=== PATIENT | male | born 1955 | race Caucasian/White ===

== ENCOUNTER → 2016-09-02 | Outpatient (CLI) | payer MEDICAID ==
[~2016-09-02] MED LIST: NS 100 ML IV 100 ML IV ONE
[2016-09-02 09:56] LABS: CREATININE 0.94 mg/dL (0.70-1.30)
--- NOTE | 2016-09-02 12:31 | US ---
HISTORY: Testicular pain Study: Scrotal Ultrasound Comparison: None Technique: Multiple horowitz scale and Doppler images of the right and left testicles were obtained Findings: Right: The right testis demonstrates normal echotexture. No intra parenchymal mass or infiltrative p rocess can be identified. Normal color flow Doppler is observed. The right testicle measures 4.3 x 2 x 2.9 cm. Left: The left testis demonstrates normal echotexture. No intra parenchymal mass or infiltrative pro cess can be identified. Normal color flow Doppler is observed. The left testicle measures 3.8 x 2.5 x 2.6 cm. IMPRESSION: 1. Normal scrotal ultrasound. Reported By:
--- NOTE | 2016-09-02 16:49 | CT ---
HISTORY: Bilateral leg pain, peripheral vascular disease Study: CT angiography with bilateral lower extremity runoff with and without contrast Comparison: None Technique: Multiple axial images of the abdomen and pelvis were obtained from the mesenteric vasculature to the plantar surface of the feet both prior to and after the administration of IV contrast. 3D reconstr uctions were performed utilizing radial maximum intensity projection imaging.Dose reduction techniqu es including Automated Exposure Control (AEC) and adjustment of mA and kV were utilized. Findings: The visualized portions of the solid organs are unremarkable in their CT appearance. There is a lar ge wide-mouth ventral hernia in the mid to upper abdomen that contains multiple small bowel loops as well as long segment of the transverse colon. There is no evidence of bowel obstruction. The appen fredi is normal. No gross free intraperitoneal air or free fluid identified. Normal urinary bladder. N o significant lymphadenopathy identified. The bony structures are grossly intact. Infrarenal abdominal aorta: There is fusiform aneurysmal dilation of the infrarenal abdominal aorta measuring up to 3.7 cm in AP diameter and approximately 8 cm in length extending into the bifurcatio n. There is extensive ulcerated mural plaque seen within the aneurysm. No dissection. Common iliac arteries: There is aneurysmal dilation of the proximal right common iliac artery measur ing up to 2.7 cm, also containing significant ulcerated mural plaque. Normal caliber of the left com mon iliac artery demonstrating moderate stenosis due to mixed calcified and noncalcified plaque. External iliac arteries: There is multifocal atherosclerotic disease within the bilateral external i liac arteries. Common femoral arteries: There is a saccular aneurysm of the right common femoral artery measuring 2 cm with significant mural plaque burden. There is a saccular aneurysm of the left common femoral ar maribell also with significant mural plaque measuring 1.8 cm. Superficial femoral arteries: There is multifocal plaque in the right SFA with mild stenosis in the proximal SFA due to the eccentric mural plaque. There is suspected moderate stenosis of the proximal left SFA due to a focal nodular calcified plaque along the medial wall. There is scattered atherosc lerotic plaque seen along the course of the left SFA. Popliteal arteries: There is a 0.9 cm aneurysm of the right popliteal artery with moderate mural bill que no significant stenosis. There is multifocal atherosclerotic disease in the left popliteal arter y without aneurysm. Tibial vasculature: There is patent three-vessel runoff to the right ankle. There is 2 vessel runoff to the left ankle with occlusion of the left anterior tibial artery at approximately the mid calf. IMPRESSION: 1. Fusiform aneurysm of the abdominal aorta measuring approximately 3.7 cm AP diameter and 8 cm in l ength extending into the bifurcation. There is significant ulcerated mural plaque burden within the aneurysm. 2. 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 3. 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 4. 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 5. Moderate stenosis of the left common iliac artery and proximal left SFA. 6. 2 vessel runoff to the left ankle with occlusion of the left anterior tibial artery at approximat lucien the mid calf. 7. 3 vessel runoff to the right ankle. 8. Large ventral abdominal wall hernia containing small and large bowel loops without evidence of ob struction. Reported By:
== END ==
LOC: RAD 09:08
PROVIDERS: ATTEND Internal Medicine
DX: N50.811 Right testicular pain (principal); N50.812 Left testicular pain; I73.89 Other specified peripheral vascular diseases
CPT/HCPCS: 36415; 73706; 76870; 82565; 84520; A4222

== ENCOUNTER → 2017-03-31 | Outpatient (CLI) | payer MEDICAID ==
--- NOTE | 2017-04-01 21:01 | US ---
Abdominal aortic sonogram Indication: Follow-up abdominal aortic aneurysm Comparison: 07/29/2015 Technique: Real-time grayscale or Doppler imaging of the abdominal aorta was performed . Findings: The proximal abdominal aorta measures 2.4 x 2.2 cm. The mid abdominal aorta measures 3.1 x 2.9 cm. The distal abdominal aorta measures 3.2 x 3.0 cm. Flow is noted within bilateral common iliac arteries. Impression: Mild aneurysmal dilatation of the mid and distal infrarenal abdominal aorta as above. Reported By:
== END | disposition home or self-care (01) | DRG 301 ==
LOC: RAD 14:05
PROVIDERS: ATTEND Surgery Vascular Surgery
DX: I71.9 Aortic aneurysm of unspecified site, without rupture (principal)
CPT/HCPCS: 76770

== ENCOUNTER 2017-04-12 16:04 | Emergency (ER) | payer MEDICAID ==
--- NOTE | 2017-04-12 16:22 | DR.CP ---
HPI - Time Seen Time seen: 16:10 - Discharge Plan Condition: Stable - Follow ups/Referrals Follow ups/Referrals: Anthony Jim [Primary Care Provider] - 3 days - Instructions
[2017-04-12 16:36] VITALS: BMI 28.8
[2017-04-12 17:03] LABS: BASOPHILS # (AUTO) 0.2 X10^3/uL (0.0-0.1); BASOPHILS % (AUTO) 1.3 % (0.2-1.0); EOSINOPHILS % (AUTO) 8.2 % (0.9-2.9); HEMATOCRIT 45.4 % (42.0-54.0); HEMOGLOBIN 15.6 g/dL (13.5-18.0); LYMPHOCYTES # (AUTO) 3.3 X10^3/uL (1.3-2.9); LYMPHOCYTES % (AUTO) 27.1 % (21.0-51.0); MEAN CORPUSCULAR HGB CONC 34.3 g/dL (33.0-35.0); MEAN CORPUSCULAR VOLUME 90.2 fL (80.0-100.0); MEAN PLATELET VOLUME 8.8 fL (7.4-11.0); MONOCYTES # (AUTO) 0.7 x10^3/uL (0.3-0.8); MONOCYTES % (AUTO) 5.4 % (0.0-13.0); PLATELET COUNT 235 X10^3/uL (150.0-450.0); RED BLOOD COUNT 5.03 X10^6/uL (4.7-6.0); WHITE BLOOD COUNT 12.1 X10^3/uL (3.6-10.0)
[2017-04-12 17:53] VITALS: BP 144/87
[2017-04-12 18:06] LABS: BLOOD UREA NITROGEN 9 mg/dL (7-18); CARBON DIOXIDE 29.8 mmol/L (21-32); CHLORIDE 101 mmol/L (98-107); COR NA(FOR HYPERGLY) 136 mmol/L (136-145); CREATININE 0.79 mg/dL (0.70-1.30); SODIUM 136 mmol/L (136-145); TROPONIN I < 0.02 ng/mL (0-1.5); eGFR BLACK RACES > 60 (>60); eGFR NON BLACK RACES > 60 (>60)
[2017-04-12 18:10] LABS: ALANINE AMINOTRANSFERASE 47 Units/L (12-78); ALBUMIN 3.6 g/dL (3.4-5.0); ALKALINE PHOSPHATASE 48 Units/L (46-116); AMYLASE 174 Units/L (25-115); ASPARTATE AMINO TRANSFERASE 24 Units/L (15-37); CKMB % 2.9 % (<4); CREATINE KINASE 38 Units/L (39-308); CREATINE KINASE MB 1.1 ng/mL (0-4.0); LIPASE 156 Units/L (73-393); TOTAL PROTEIN 7.2 g/dL (6.4-8.2)
== END 2017-04-12 18:40 | disposition home or self-care (01) ==
LOC: ER 16:17
DX: R07.89 Other chest pain (principal); M54.89 Other dorsalgia; R10.84 Generalized abdominal pain; R52 Pain, unspecified
CPT/HCPCS: 36415; 80053; 82150; 82550; 82553; 83690; 84484; 85025; 86140; 93005; 93010; 96365; 99283; A4222

== ENCOUNTER → 2017-04-13 | Outpatient (CLI) | payer MEDICAID ==
--- NOTE | 2017-04-13 12:25 | CT ---
HISTORY: Left lower quadrant pain, history of hernia, previous surgeries, abdominal aortic aneurysm Study: CT abdomen and pelvis with contrast Comparison: 09/02/2016, 07/29/2015 Technique: Multiple axial images of the abdomen and pelvis were obtained with IV contrast. Oral contrast was ad ministered. Dose reduction techniques including Automated Exposure Control (AEC) and adjustment of mA and kV were utilized. Findings: The visualized lung bases are clear. Normal-sized heart. The liver, spleen, pancreas and kidneys are unremarkable in their CT appearance. The gallbladder is normal. There is a stable left adrenal nodul e compatible with an adenoma. No free intraperitoneal air. No evidence of intestinal obstruction or inflammation. Oral contrast miriam ches the rectum. No free fluid is identified. Normal appendix. There is a large ventral abdominal wal l defect that is chronic in nature containing multiple small and large bowel loops without evidence o f obstruction. The osseous structures are intact. There is fusiform aneurysmal dilation of the infrarenal abdominal aorta measuring up to 3.6 cm with extensive intramural ulcerated plaque. There is a penetrating ulcer arising from the left posterior/lateral aspect of the aorta on axial image 42 measuring 1.3 x 1 cm t hat appears stable. There is stable aneurysmal dilation of the right common iliac artery measuring 2. 8 cm. There is is extensive plaque in the bilateral common and external iliac arteries and visualized common femoral arteries. There is aneurysmal dilation of the right common femoral artery measuring 2 cm and ectasia also present in the left common femoral artery. No pathologically enlarged lymph node s are identified. Normal urinary bladder. IMPRESSION: 1. No acute abnormality identified. 2. Severe vascular disease with stable aortic aneurysm, right common iliac aneurysm, right common fem oral aneurysm, and penetrating ulcer arising from the left posterior lateral aspect of the distal aor ta. 3. Stable large ventral abdominal hernia containing bowel loops. Reported By:
== END | disposition home or self-care (01) | DRG 392 ==
LOC: RAD 10:01
PROVIDERS: ATTEND Internal Medicine
DX: R10.32 Left lower quadrant pain (principal); Z98.890 Other specified postprocedural states; I71.4 Abdominal aortic aneurysm, without rupture; I72.3 Aneurysm of iliac artery; I72.4 Aneurysm of artery of lower extremity; K45.8 Other specified abdominal hernia without obstruction or gangrene
CPT/HCPCS: 74177; A4222

== ENCOUNTER → 2017-06-28 | Outpatient (CLI) | payer MEDICAID | LOC: RAD 14:13 | PROVIDERS: ATTEND Internal Medicine | DX: I20.0 Unstable angina (principal); R06.02 Shortness of breath | CPT/HCPCS: 93306 ==

== ENCOUNTER → 2017-07-10 | Outpatient (CLI) | payer MEDICAID ==
[~2017-07-10] MED LIST changes: +LEXISCAN IV ONE; -NS 100 ML IV 100 ML IV ONE
== END ==
LOC: RAD 08:26
PROVIDERS: ATTEND Internal Medicine
DX: I20.0 Unstable angina (principal); R06.02 Shortness of breath
CPT/HCPCS: 78452; 93017; A4222; A9502; J2785

== ENCOUNTER → 2017-08-25 | Outpatient (CLI) | payer MEDICAID ==
[~2017-08-25] MED LIST changes: -LEXISCAN IV ONE; +NS 100 ML IV 100 ML IV ONE
[2017-08-25 08:48] LABS: CREATININE 0.89 mg/dL (0.70-1.30)
--- NOTE | 2017-08-29 09:14 | CT ---
History: Chest pain and aortic aneurysm. Exam: Postcontrast CT exam of the chest, abdomen, and pelvis. Technique: Following the IV administration of contrast, CT images of the chest, abdomen, and pelvis w ere performed from the thoracic inlet to the pubic symphysis in this patient. Findings: Thoracic inlet is unremarkable. The airway is patent. The aorta is non aneurysmal without e vidence for acute aortic pathology. No pulmonary embolism is seen through the central pulmonary arter ial level. The heart is normal in size with minimal coronary atherosclerosis. There is no pericardial effusion. The lungs are clear without consolidation, effusion, or pneumothorax. No adenopathy or pul monary mass lesion is seen. No acute fracture or lytic bony lesion is observed. There is a tiny hiata l hernia. The liver is mildly fatty in appearance. The gallbladder, pancreas, spleen, kidneys, and ri ght adrenal gland are unremarkable in appearance. There is a 1 cm left adrenal gland nodule which can not be classified as an adenoma. This can be followed up with dedicated CTA green adrenal gland imagi ng. There is a large ventral/anterior abdominal wall hernia on image numbers 80 of series 4 which has a central neck that measures 6 cm. This anterior/ventral herniae contains mesenteric fat and loops o f both the colon/transverse colon and small bowel without evidence for a bowel obstruction or bowel i ncarceration. There is diffuse aortic atherosclerosis with an infrarenal aortic aneurysm which is bes t seen on images 79 through 85 of series 4, measuring 30 x 32 mm. No periaortic fluid collections rodrigue reciated to suggest hemorrhage. There is also a right common iliac artery aneurysm which measures 27 mm. There is nonocclusive but peripheral mural thrombus seen within this infrarenal aneurysm, extendi ng into the right common iliac artery aneurysm as well. There is diffuse iliac atherosclerosis observ ed also without evidence for occlusion of these vessels. The bladder is grossly unremarkable in appea merced. The prostate gland is prominent. Please correlate. No free air, free fluid collection, or othe r acute abdominopelvic abnormality is seen. There is a [id number] quantity of colonic stool ob served. No pathologic adenopathy is seen. There is spinal spondylosis without acute fracture or lytic bony lesion of the thoracolumbar spine seen. Impression: Diffuse aortic atherosclerosis with an infrarenal aortic aneurysm which is best seen on images 79 thr ough 85 of series 4, measuring 30 x 32 mm. No periaortic fluid collections/blood appreciated to sugge st acute hemorrhage or aneurysmal rupture. Right common iliac artery aneurysm also observed, which measures 27 mm. Nonocclusive but circumferential/peripheral intraluminal mural thrombus seen in this infrarenal aneur ysm, extending into the right common iliac artery aneurysm. No acute cardiopulmonary process seen. Small hiatal hernia noted. 1 cm left adrenal gland nodule which cannot be classified as an adenoma. This can be followed up with dedicated CTA green adrenal gland imaging. Large ventral/anterior abdominal wall hernia on image numbers 80 of series 4 which has a central neck that measures 6 cm. This anterior/ventral herniae contains mesenteric fat and loops of both the colo n/transverse colon and small bowel without evidence for a bowel obstruction or bowel incarceration. N o free air, free fluid collection, or other acute abdominopelvic abnormality is seen. [id number] quantity of colonic stool observed. Reported By:
== END | disposition home or self-care (01) | DRG 204 ==
LOC: RAD 08:25
PROVIDERS: ATTEND Internal Medicine
DX: R04.2 Hemoptysis (principal); R06.02 Shortness of breath; Z72.0 Tobacco use; R22.1 Localized swelling, mass and lump, neck; I70.0 Atherosclerosis of aorta; I71.9 Aortic aneurysm of unspecified site, without rupture; I72.3 Aneurysm of iliac artery; K44.9 Diaphragmatic hernia without obstruction or gangrene
CPT/HCPCS: 36415; 70491; 71260; 82565; 84520; A4222